=== PATIENT | male | born 1965 | race Caucasian/White ===

== ENCOUNTER 2024-01-16 08:50 | Day surgery (SDC) | payer OTHER ==
[2024-01-11 13:59] LABS: Absolute Eosinophils 0.1 K/uL (0-0.5); Absolute Lymphocytes (CBC) 2.2 K/uL (0.7-4.9); Absolute Monocytes 0.5 K/uL (0.1-1.3); Absolute Neutrophil 4.2 K/uL (1.8-8.0); Basophils % 0.6 % (0-1.3); Eosinophils % 1.4 % (0-4.4); Hematocrit 45.5 % (39.6-49.0); Hemoglobin 15.2 g/dL (13.6-17.9); Lymphocytes % 31.1 % (15.3-44.8); MCH 32.9 pg (27.0-35.0); MCHC 33.3 g/dL (32.0-36.0); MCV 98.7 fL (80-100); MPV 8.1 fL (7.6-11.3); Monocytes % 7.7 % (3.3-12.3); Neutrophils % 59.2 % (41.7-73.7); Platelets 322 thou/uL (152-406); RBC Red Blood Cell Count 4.61 M/uL (4.33-5.43); Red Cell Distribution Width 15.7 % (12.1-15.2)
[2024-01-16] MEDS: Ringers Lactate 1,000 ML IV ONE (09:45)
[2024-01-16] MEDS ORDERED: propofoL 200 MG/20 ML VIAL IV ONE (10:49)
[2024-01-16 12:39] LABS: PT Prothrombin Time 13.2 SECONDS (9.5-12.5); PTT, Activated Partial Thromb 34.6 SECONDS (24.3-36.9); Protime INR 1.21
--- NOTE | 2024-01-16 13:08 | RAD REPORT ---
EXAM DESCRIPTION: RAD - Chest Pa And Lat (2 Views) - 01/16/2024 1:02 pm CLINICAL HISTORY: DR SWEATTS ORDERS Chest pain. COMPARISON: No comparisons FINDINGS: Mild interstitial pulmonary edema suspected. The heart is mildly enlarged in size. No disp laced fractures. IMPRESSION: Mild CHF.
[2024-01-16 14:24] VITALS: BP 97/51; TEMP 97.4; O2SAT 100
== END 2024-01-16 13:09 | disposition home or self-care (01) ==
LOC: OR 08:50
PROVIDERS: ATTEND Internal Medicine Gastroenterology
PROC: 0DB68ZX Excision of Stomach, Via Natural or Artificial Opening Endoscopic, Diagnostic (ICD-10-PCS; 2024-01-16)
PROC: 0D758ZZ Dilation of Esophagus, Via Natural or Artificial Opening Endoscopic (ICD-10-PCS; 2024-01-16)
PROC: 0DB58ZX Excision of Esophagus, Via Natural or Artificial Opening Endoscopic, Diagnostic (ICD-10-PCS; principal; 2024-01-16 11:15)
DX: K22.2 Esophageal obstruction (principal); K21.00 Gastro-esophageal reflux disease with esophagitis, without bleeding; K29.50 Unspecified chronic gastritis without bleeding; R93.5 Abnormal findings on diagnostic imaging of other abdominal regions, including retroperitoneum; R11.2 Nausea with vomiting, unspecified; R13.10 Dysphagia, unspecified; T17.398A Other foreign object in larynx causing other injury, initial encounter
CPT/HCPCS: 93005; 85025; 80048; 36415 ×2; 88312; 85610; 88304; 85730; 71046; 43239; 43248; J2704; J7120; 88305